=== PATIENT | female | born 1960 | race Caucasian/White ===

== ENCOUNTER 2018-12-20 22:12 | Inpatient (IN) | payer BC ==
[~2018-12-20] VITALS: Ht 167.6 cm; Wt 86.8 kg
[~2018-12-20 22:12] MED LIST: ALBU18HF INHALATION; AMLO-147 PO; ASPI-903 PO; BUDE6HFA INHALATION; FLUT1BLS INHALATION; IPRA3AMP29 INHALATION; LISI-471 PO; LORA10CA9 PO; LORA1TAB PO; MONT10TA24 PO; PARO-37 PO; RANI150T5 PO; SIMV20TA PO; TIOT18CA INHALATION
[2018-12-21 01:20] VITALS: BP 117/70; PULSE 120; RESP 18
[2018-12-21 01:31] VITALS: Ht 167.6 cm; Wt 86.8 kg
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
[2018-12-21] MEDS ORDERED: BISACODYL (EC) 5 MG TAB PO PRN (02:30)
[2018-12-21] MEDS ORDERED: DOCUSATE SODIUM 100 MG CAP PO PRN (02:30)
[2018-12-21] MEDS ORDERED: NACL 0.9% 3 ML SYG IV SCH (02:30)
[2018-12-21] MEDS: LEVALBUTEROL (NEB) 1.25 MG/0.5 ML AMP HHN SCH ×5 (02:30→20:43)
[2018-12-21] MEDS ORDERED: ONDANSETRON 4 MG INJ IV PRN (02:30)
[2018-12-21] MEDS: METHYLPREDNISOLONE 40 MG INJ IV SCH ×3 (03:03→17:57)
[2018-12-21] MEDS: ACETAMINOPHEN 325 MG TAB PO PRN ×3 (03:04→18:53)
[2018-12-21 04:00] VITALS: BP 109/71; PULSE 110; RESP 18
[2018-12-21] MEDS: IPRATROPIUM (NEB) 0.5 MG/2.5 ML AMP HHN SCH ×5 (05:11→20:43)
[2018-12-21] MEDS: LEVALBUTEROL (NEB) 1.25 MG/0.5 ML AMP HHN PRN (05:11)
[2018-12-21] MEDS: PANTOPRAZOLE (EC) 40 MG TAB PO SCH (05:35)
[2018-12-21] MEDS ORDERED: SOD CHLORIDE 0.9% 500 ML IV ONE (06:30)
[2018-12-21] MEDS ORDERED: LORAZEPAM 2 MG INJ IV ONE (06:30)
[2018-12-21 08:04] VITALS: BP 114/69; PULSE 108; RESP 17
[2018-12-21] MEDS: ASPIRIN 81 MG TAB PO SCH (08:51)
[2018-12-21] MEDS: RANITIDINE 150 MG TAB PO SCH ×2 (08:51→21:18)
[2018-12-21] MEDS: PAROXETINE 20 MG TAB PO SCH (08:51)
[2018-12-21] MEDS: AMLODIPINE 10 MG TAB PO SCH (08:52)
[2018-12-21] MEDS: LEVOFLOXACIN 750MG/D5W (PMX) 150 ML IVPB SCH (08:54)
[2018-12-21] MEDS ORDERED: NON-FORMULARY/PATIENT OWN MED (Budesonide-Formoterol Fumarate* (Symbicort*) 2 PUFF) INHALATION SCH (09:00)
[2018-12-21] MEDS ORDERED: TIOTROPIUM 18 MCG CAPSULE INHA DEV INH SCH (09:00)
[2018-12-21] MEDS ORDERED: FLUTICASONE/VILANTEROL 200-25 INH DEVICE INH SCH (09:00)
[2018-12-21] MEDS ORDERED: LISINOPRIL 20 MG TAB PO SCH (09:00)
[2018-12-21] MEDS ORDERED: NA POLYST SULFON 15 GM/60 ML BTL PO ONE (10:30)
--- NOTE | 2018-12-21 10:36 | QN ---
Documentation Comment 58 yo F w/copd/former smoker,htn,depression,obesity admitted w/copd exacer bation. patient appears symptomatic still. DC all inhalers and start NEB around the clock w/Xopenex,Brovana,Budesonide. Cont.steroids w/addition of ISS. Cont.w/Levaquin for possible tracheobronchitis. Hyperkalemia noted. DC ACEi. pt already got dose this morning. Give 15 gm Kayexalate dose and monitor K level. seen in collaboration w/STACY Kendall V. CERAMIC TILE INSTALLER Dec 21, 2018 10:36
[2018-12-21] MEDS ORDERED: DEXTROSE 50% 50 ML SYRINGE IV PRN ×2 (11:00)
[2018-12-21] MEDS ORDERED: GLUCOSE GEL 15 GRAM TUBE BUCCAL PRN (11:00)
[2018-12-21] MEDS ORDERED: GLUCOSE GEL 15 GRAM TUBE PO PRN ×2 (11:00)
[2018-12-21] MEDS ORDERED: GLUCAGON 1 MG INJ IM PRN (11:00)
[2018-12-21] MEDS: ARFORMOTEROL TARTRATE 15MCG/2 ML AMP NEB SCH ×2 (11:30→20:43)
[2018-12-21] MEDS: BUDESONIDE (NEB) 0.5MG/2ML AMP HHN SCH ×2 (11:30→20:43)
[2018-12-21 11:44] VITALS: BP 107/61; PULSE 87; RESP 18
[2018-12-21] MEDS: INSULIN ASPART [NOVOLOG] 3 ML PEN SC SCH ×3 (12:26→21:00)
[2018-12-21 15:43] VITALS: BP 105/66; PULSE 89; RESP 19
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
[2018-12-21 20:32] VITALS: BP 103/69; PULSE 111; RESP 18
[2018-12-21] MEDS ORDERED: NON-FORMULARY/PATIENT OWN MED (Simvastatin* (Zocor*) 20 MG) PO SCH (21:00)
[2018-12-21] MEDS ORDERED: ATORVASTATIN 10 MG TAB PO SCH (21:00)
[2018-12-21] MEDS: LORAZEPAM 2 MG INJ IV PRN (23:06)
[2018-12-22] VITALS: BP 99/61; PULSE 105; RESP 18
[2018-12-22] MEDS: IPRATROPIUM (NEB) 0.5 MG/2.5 ML AMP HHN SCH ×4 (01:11→12:38)
[2018-12-22] MEDS: LEVALBUTEROL (NEB) 1.25 MG/0.5 ML AMP HHN SCH ×3 (01:11→12:38)
[2018-12-22] MEDS ORDERED: ACCU-CHEK XX SCH (02:00)
[2018-12-22] MEDS: METHYLPREDNISOLONE 40 MG INJ IV SCH ×2 (02:29→09:37)
[2018-12-22 04:18] VITALS: BP 95/56; PULSE 98; RESP 18
[2018-12-22] MEDS: LEVALBUTEROL (NEB) 1.25 MG/0.5 ML AMP HHN PRN (05:45)
[2018-12-22] MEDS: PANTOPRAZOLE (EC) 40 MG TAB PO SCH (05:54)
[2018-12-22] MEDS: LEVOFLOXACIN 750MG/D5W (PMX) 150 ML IVPB SCH (06:31)
[2018-12-22] MEDS: PAROXETINE 20 MG TAB PO SCH (08:02)
[2018-12-22] MEDS: ASPIRIN 81 MG TAB PO SCH (08:02)
[2018-12-22] MEDS: RANITIDINE 150 MG TAB PO SCH (08:02)
[2018-12-22] MEDS: AMLODIPINE 10 MG TAB PO SCH (08:03)
[2018-12-22] MEDS: ARFORMOTEROL TARTRATE 15MCG/2 ML AMP NEB SCH (08:06)
[2018-12-22] MEDS: BUDESONIDE (NEB) 0.5MG/2ML AMP HHN SCH (08:06)
[2018-12-22] MEDS: INSULIN ASPART [NOVOLOG] 3 ML PEN SC SCH ×2 (08:07→11:33)
[2018-12-22 08:33] VITALS: BP 109/67; PULSE 99; RESP 18
[2018-12-22] MEDS: LORAZEPAM 2 MG INJ IV PRN (09:42)
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
[2018-12-22 12:47] VITALS: BP 110/61; PULSE 115; RESP 18
[2018-12-22 15:14] VITALS: BP 118/73; PULSE 113; RESP 18
== END 2018-12-22 16:49 | disposition home or self-care (01) | DRG 192 ==
LOC: 6WM 12-21 01:01
PROVIDERS: ADMIT Family Medicine; ATTEND Family Medicine
DX: J44.0 Chronic obstructive pulmonary disease with (acute) lower respiratory infection (principal); E87.5 Hyperkalemia; J20.9 Acute bronchitis, unspecified; J45.50 Severe persistent asthma, uncomplicated; J44.1 Chronic obstructive pulmonary disease with (acute) exacerbation; I10 Essential (primary) hypertension; E78.5 Hyperlipidemia, unspecified; F41.9 Anxiety disorder, unspecified; F32.9 Major depressive disorder, single episode, unspecified; R73.03 Prediabetes; E66.9 Obesity, unspecified; Z68.30 Body mass index [BMI] 30.0-30.9, adult; Z87.891 Personal history of nicotine dependence
CPT/HCPCS: 80048; 80053; 80061; 82306; 82962; 83036; 83735; 84443; 85025; 85610; 85730; 94640; 94664; J1815; J1956; J2060; J2920; J7040